=== PATIENT | male | born 1965 | race Caucasian/White ===

== ENCOUNTER 2022-06-26 10:21 | Day surgery (SDC) | payer OTHER, SELFPAY ==
[2022-06-21 13:45] VITALS: BMI 28.7
--- NOTE | 2022-06-25 08:48 | P.CONAN_ITS ---
Documented by User: Yolande Cruz NP 06/25/22 08:50 HPI - Anesthesia Eval Consult details Narrative: 56yo M Bilateral Eye Muscle Medial rectus Recession PCP cleared [facility] Past Medical History Medical History Hx of renal calculi Hyperlipidemia Social History Social History Patient Tobacco Use Status: Never used Tobacco Are you DNR?: No Advance Directives: No Advance Directives Information Provided: Yes Meds Allergies Allergy/AdvReac Type Severity Reaction Status Date / Time No Known Allergies Allergy Verified 06/21/22 13:43 Home Medications Medication Instructions Recorded Confirmed Last Taken Type betamethasone dipropionate 0.05 % topical BID PRN Rash 06/21/22 Unknown History lotion cholecalciferol (vitamin D3) 10 10 mcg PO DAILY 06/21/22 06/26/22 Unknown Hi story mcg (400 unit) capsule (Vitamin D3) clobetasol 0.05 % topical cream topical BID PRN Rash 06/21/22 Unknown History desonide 0.05 % topical cream appl topical BID PRN Rash 06/21/22 Unknown History ibuprofen 600 mg tablet 600 mg PO TID PRN Pain 06/21/22 06/21/22 Unknown History multivitamin 1 tab PO DAILY 06/21/22 06/26/22 Unknown History Exam Exam Date and Time: June 25, 2022 0848 Height,Weight and Vital Signs: Height 5 ft 6 in Weight 80.739 kg Assessment and Plan Assessment Anesthesia Assessment: Chart Reviewed Documented by User: Justyn Borja MD 06/26/22 13:54 [facility] Past Medical History Medical History Hx of renal calculi Hyperlipidemia Family History Family history of problems with anesthesia: No Surgical History History of Problems with Anesthesia: No Social History Social History Patient Tobacco Use Status: Never used Tobacco Are you DNR?: No Advance Directives: No Advance Directives Information Provided: Yes Meds Allergies Allergy/AdvReac Type Severity Reaction Status Date / Time No Known Allergies Allergy Verified 06/21/22 13:43 Home Medications Medication Instructions Recorded Confirmed Last Taken Type betamethasone dipropionate 0.05 % topical BID PRN Rash 06/21/22 Unknown History lotion cholecalciferol (vitamin D3) 10 10 mcg PO DAILY 06/21/22 06/26/22 Unknown History mcg (400 unit) capsule (Vitamin D3) clobetasol 0.05 % topical cream topical BID PRN Rash 06/21/22 Unknown History desonide 0.05 % topical cream appl topical BID PRN Rash 06/21/22 Unknown History ibuprofen 600 mg tablet 600 mg PO TID PRN Pain 06/21/22 06/21/22 Unknown History multivitamin 1 tab PO DAILY 06/21/22 06/26/22 Unknown History Exam Airway Mallampati Class: II TM Dist: >3cm Neck ROM: Limited Denture: Upper and Lower Assessment and Plan Assessment Anesthesia Assessment: Anesthesia Plan Discussed Final Anesthetic Review Family History of Problems with Anesthesia: No History of Problems with Anesthesia: No NPO: Yes ASA Class: III Final Preanesthetic Review: No Changes in Pt Med Stat, Meds/Allgs Chart Reviewed, Consent Obtained/Reviewed and Anes Risks/Benef Reviewed Patient Risk: Intermediate Procedure Risk: Low Anesthetic Plan Anesthetic Plan: GA Disposition: Standard PACU
[2022-06-26 10:38] VITALS: BMI 28.2
[2022-06-26 10:47] VITALS: BP 128/87; PULSE 70; RESP 18; TEMP 36.6; O2SAT 99
[2022-06-26] MEDS: Lactated Ringers 1,000 ML 100 ML IVCONT (11:03)
--- NOTE | 2022-06-26 12:06 | P.CONAN_ITS ---
[facility] Past Medical History Medical History Hx of renal calculi Hyperlipidemia Surgical History History of Problems with Anesthesia: No Social History Social History Patient Tobacco Use Status: Never used Tobacco Are you DNR?: No Advance Directives: No Advance Directives Information Provided: Yes Meds Allergies Allergy/AdvReac Type Severity Reaction Status Date / Time No Known Allergies Allergy Verified 06/21/22 13:43 Active Medications: Current Medications Lactated Ringer's (Lr) 1,000 mls @ 100 mls/hr IVCONT .Q10H FELIX Last Admin: 06/26/22 11:03 Dose: 100 mls/hr Home Medications Medication Instructions Recorded Confirmed Last Taken Type betamethasone dipropionate 0.05 % topical BID PRN Rash 06/21/22 Unknown History lotion cholecalciferol (vitamin D3) 10 10 mcg PO DAILY 06/21/22 06/26/22 Unknown History mcg (400 unit) capsule (Vitamin D3) clobetasol 0.05 % topical cream topical BID PRN Rash 06/21/22 Unknown History desonide 0.05 % topical cream appl topical BID PRN Rash 06/21/22 Unknown History ibuprofen 600 mg tablet 600 mg PO TID PRN Pain 06/21/22 06/21/22 Unknown History multivitamin 1 tab PO DAILY 06/21/22 06/26/22 Unknown History Exam Exam Date and Time: June 26, 2022 1206 Height,Weight and Vital Signs: Height 5 ft 6 in Weight 79.379 kg Last Vital Signs Temp 97.9 F 06/26/22 10:47 Pulse 70 06/26/22 10:47 Resp 18 06/26/22 10:47 BP 128/87 06/26/22 10:47 Pulse Ox 99 06/26/22 10:47 O2 Del Method Room Air 06/26/22 10:47 Airway Mallampati Class: II TM Dist: >3cm Neck ROM: Full Loose/Missing/Broken Teeth: No Heart: RRR Lungs: CTA Assessment and Plan Assessment Anesthesia Assessment: Anesthesia Plan Discussed and Chart Reviewed Final Anesthetic Review History of Problems with Anesthesia: No NPO: Yes ASA Class: II Final Preanesthetic Review: Meds/Allgs Chart Reviewed, Consent Obtained/Reviewed and Anes Risks/Benef Reviewed Patient Risk: Low Procedure Risk: Low Anesthetic Plan Anesthetic Plan: GA Disposition: Standard PACU
[2022-06-26 13:15] VITALS: BP 114/73; PULSE 72; RESP 16; TEMP 36.1; O2SAT 99
[2022-06-26 13:20] VITALS: BP 106/73; PULSE 80; RESP 16; O2SAT 99
[2022-06-26 13:25] VITALS: BP 107/75; PULSE 89; RESP 16; O2SAT 98
[2022-06-26 13:30] VITALS: BP 110/75; PULSE 73; RESP 16; O2SAT 98
[2022-06-26 13:45] VITALS: BP 114/75; PULSE 73; RESP 16; O2SAT 98
--- NOTE | 2022-06-26 14:37 | HO.OPHTHAL ---
Ophthalmology Operative Note Date of Service: 06/26/22 Narrative: Diagnosis esotropia. Procedure bilateral medial rectus recessions of [address] Ardon. Anesthesia general. Complications none. The patient was brought to the operating room placed under general anesthesia. The eyes were prepped and draped in the usual sterile ophthalmic fashion. A lid speculum was placed in the right eye and an incision was made down to bare sclera in the inferonasal fornix. The medial rectus muscle was hooked and secured with a double-armed Vicryl suture. It was disinserted from the globe and reattached to a position 4 mm behind the original insertion using a hang back technique. Conjunctiva was closed with interrupted Vicryl sutures. An identical procedure was then performed on the left eye. The patient was then awoken from general anesthesia and discharged to postoperative recovery in good condition.
== END 2022-06-26 14:55 | disposition home or self-care (01) ==
PROVIDERS: PCP Family Medicine; Visit Provider Ophthalmology
PROC: (CPT 67311; principal; 2022-06-26 11:30)
DX: H53.2 Diplopia (principal); H50.00 Unspecified esotropia; E78.5 Hyperlipidemia, unspecified; Z79.1 Long term (current) use of non-steroidal anti-inflammatories (NSAID); Z79.899 Other long term (current) drug therapy; Z87.442 Personal history of urinary calculi
CPT/HCPCS: 67311; J0131; J1100; J1885; J2250; J2405; J3010